=== PATIENT | male | born 1955 | race Caucasian/White ===

== ENCOUNTER 2023-06-05 06:54 | Observation (INO) ==
--- NOTE | 2023-05-11 12:25 | PAT Medication Instructions ---
Medication Instructions Date of Service May 11, 2023 Home Medications ibuprofen 200 mg tablet 800 mg PO UD PRN Pain ASK your surgeon for instructions ibuprofen 200 mg tablet 800 mg PO UD PRN Pain Other Notes Remember: NOTHING TO EAT OR DRINK AFTER MIDNIGHT If you have any questions please call us at [phone] or [phone] or [phone] or [phone]
--- NOTE | 2023-05-16 08:57 | Anesthesiology Consultation ---
Date of Service May 16, 2023 Assessment & Plan (1) Encounter for pre-operative examination: Chart Review Chart Review: Acceptable Risk for Surgery and Patient seen in Pre Admission Testing Pt currently scheduled as 23 hours observation. If surgeon decides to change patient to Same Day Joint, patient would be acceptable risk for TKA, pending patient is motivated, has good support and surgeon's office completes [facility] preop requirements. Per PAT appt on 05/16/23, no recent illness/disease exposures, illness related symptoms, or recent illness/disease positive tests. Will leave to surgeon's discretion if preop Covid testing needed Teaching & Discussion Pre-Anesthesia Teaching/Discussion Notes: Instructed NPO after midnight before surgery,except medications with 15 cc of water. Medication instructions provided according to the PAT guidelines. History Surgery Operation Date: 06/05/23 12:30 Proposed Procedures p Left Total Knee Arthroplasty - Terry Hernandez MD Height/Weight Height: 5 ft 11 in Weight: 118.1 kg Allergies Allergy/AdvReac Type Severity Reaction Status Date / Time No Known Allergies Allergy Verified 05/10/23 11:11 Medications Home Medications Medication Instructions Recorded Confirmed Last Taken ibuprofen 200 mg tablet 800 mg PO UD PRN Pain 08/18/21 05/10/23 08/18/21 10:00 Past Medical History Medical History Arthritis Exercise / Class Metabolic Activity II 4-5 Yardwork/Stairs/Walk up hill (one flight of stairs - no chest pain or SOB ) Past Family History Family History Unknown Unknown family medical history Past Surgical History Surgical History H/O hernia repair abdominal hernia History of cataract surgery rt/left Past Anesthesia History No Hx of Anesthesia Complications and No Family Hx of Anesthesia Complications History of PONV No Hx of PONV Social History Smoking Status: Never smoker Do You Dip or Chew Tobacco: No Hx Alcohol Use: Yes Alcohol type: beer alcohol intake frequency: a few times a month Hx Substance Use: No substance use type: does not use Review of Systems Patient denies chest pain, shortness of breath, dyspnea on exertion, reflux, cough, wheezing, palpitations. No hx of seizures, stroke, AR, apnea/snoring. No hx of blood clots or blood transfusions Physical Exam Vital Signs VITALS BP 171/86 (170/92 manually- patient checked BP at home later that day- was 132/86 (usually well controlled per patient)) P 55 TEMP 98.0 SP02 98% RESP 16 Constitutional no acute distress ENMT Mouth: no TMJ clicking Thyromental Distance: > or= 3.5 Finger Breadths (4.0) Mallampati Class: I Missing molars and side teeth (dental extraction 05/10/23- mild tightness with opening mouth- surgeon's office made aware) Permanent implant to top front teeth Neck + limited neck extension (significant ) Respiratory normal respiratory effort; no respiratory distress Auscultation: lungs clear to auscultation bilaterally; no wheezes Cardiovascular Rate/Rhythm: regular rate and regular rhythm Heart Sounds: no murmur Vessels: no carotid bruit Musculoskeletal Spine: + pain with cervical ROM Extremities: extremities normal to inspection Psychiatric Orientation: alert Lab Results Anesthesia Preop Results Results Anesthesia Widget: WBC 3.64 K/ul (4.8-10.8) L 05/16/23 Hgb 13.0 g/dl (14.0-18.0) L 05/16/23 Hct 39.5 % (42.0-52.0) L 05/16/23 Plt 127 K/uL (130-400) L 05/16/23 Na 137 mmol/L (136-145) 05/16/23 K 3.8 mmol/L (3.5-5.1) 05/16/23 Cl 106 mmol/L (98-107) 05/16/23 CO2 26 mmol/L (21-32) 05/16/23 BUN 18 mg/dl (6-23) 05/16/23 Creat 0.88 mg/dl (0.6-1.4) 05/16/23 Glucose Level 105 mg/dl (70-99(Fasting)) H 05/16/23 PT 10.9 Seconds (9.0-12.0) 05/16/23 PTT 26.1 Seconds (21.0-31.0) 05/16/23 INR 1.0 (0.9-1.1) 05/16/23 Blood Type A Positive 05/16/23 Antibody Screen NEGATIVE 05/16/23 Testing Electrocardiogram Date: 05/16/23 Findings: + SB @ (51bpm ) Normal EKG per cardio Chest X-Ray Date: 05/16/23 Findings: + NAD FINDINGS: No lines and tubes are seen. The aorta is tortuous. The remainder of the cardiomediastinal silhouette is unremarkable. The lungs are clear. No evidence of pleural effusion or pneumothorax Other Testing Lumbar spine CT 12/04/22= Nondisplaced fractures of the medial left 12th rib and transverse processes of L1 and L2. No intra-abdominal injury
--- NOTE | 2023-05-30 13:39 | History & Physical Report ---
Date of Service May 30, 2023 Assessment & Plan (1) Left knee DJD: 68-year-old male with advanced left knee DJD. Is failed conservative measures. He like to have his knee replaced. We will plan to take him the operative left total knee replacement. The risks Mente this procedure plan the patient and include but not limited to DVT PE infection neurological injury vascular bleeding palm pain limb range of motion sepsis fairly of symptoms incomplete relief of symptoms etc. The patient understands and desires to proceed. Informed consent is obtained. Plan DVT prophylaxis including thigh-high teds, SCDs, aspirin twice a day. He is plan to be discharged home using [facility] health program. History of Present Illness Chief Complaint: . Persistent left knee pain and discomfort Primary Care Provider: Quynh Milan DO . Patient is a 68-year-old gentleman presents for surgical treatment of his left knee. He has had a several year history of gradual progressive and increasing left knee pain discomfort. He has been through extensive conservative care including medicines as well as injection. The last shots have not really helped him at all. Describes global pain in his knee. The more he is up and out the more it hurts. Limps more as the day goes on. Having difficulty going up and down steps. Like to have his knee replaced. Allergies Allergy/AdvReac Type Severity Reaction Status Date / Time No Known Allergies Allergy Verified 05/10/23 11:11 Home Medications Medication Instructions Recorded Confirmed Type ibuprofen 200 mg tablet 800 mg PO UD PRN Pain 08/18/21 05/10/23 History Past Med/Surg History Medical History Arthritis Surgical History H/O hernia repair abdominal hernia History of cataract surgery rt/left Family History Unknown Unknown family medical history Social History Smoking Status: Never smoker Second Hand Exposure: No; Do You Dip or Chew Tobacco: No; Hx Alcohol Use: Yes Alcohol type: beer Hx Substance Use: No Preferred Language: Cymraes Meter Calibrator Required: No Beliefs That Will Affect Care: None marital status: Current Living Situation: Spouse current occupational status: employed current occupation: electric lift truck driver Feels Safe at Home: Yes Childhood Exposure to Second-Hand Smoke: No Physical Activity Frequency: Daily Assistive Devices: Cane Review of Systems All systems reviewed & are unremarkable except as noted in HPI & below. Physical Exam . Physical examination was a pleasant middle-aged male. Looks to be in reasonably good health. Fairly large gentleman. Examination of the left knee patient walks with a slight bit of a limp. Is got fairly neutral alignment to his knee. Small knee effusion. Tender medial and laterally. Range of motion is about 5-1 25. There is no instability. No pain with hip motion. Negative straight leg raise. He is neurologically intact Constitutional WD/WN, vitals as above Neck trachea midline, no thyromegaly Respiratory normal respiratory effort, lungs clear to auscultation Cardiovascular RRR, no murmur, no edema Gastrointestinal (Abdomen) normal bowel sounds, soft, nontender, no hepatosplenomegaly Results & Data Results & Data Laboratory Results . Diagnostic Findings . X-rays of the left knee were reviewed. Shows advanced left knee DJD. Is got a little bit tibiofemoral subluxation. He is got osteophytes and arthritic changes in all 3 compartments. PG Care Time/CCT Total # of Minutes Spent Total Time Spent with Patient: Total time spent is greater than 50% in coordination of care (as documented) at patient's floor/unit and/or counseling patient: Coding Level of Care Code None Diagnoses Left knee DJD M17.12
[~2023-06-05 06:54] MED LIST: ACETAMINOPHEN 500 MG TAB PO SCH; BUPIVACAINE 0.5 % 5 MG/1 ML PF 10ML VIAL ONE; BUPIVACAINE LIPOSOME/PF 266 MG, BUPIVACAINE/EPINEPHRINE 50 ML, SODIUM CHLORIDE 0.9% PF ... INFIL SCH; CeleBREX 200 MG CAP PO SCH; EPINEPHrine INJ 1 MG/ML AMP ONE; FAMOTIDINE 20 MG TAB PO SCH; LR 500ML BOLUS, THEN 15ML/HR IV SCH; LR 60ML/HR IV SCH; METOCLOPRAMIDE HCL 10 MG TABLET PO SCH; ROPIVACAINE 0.5% 5 MG/ML 30 ML VIAL ONE; TRANEXAMIC ACID 1,000 MG **IV Intra-op IV SCH; ceFAZolin 2000MG 2,000 MG/15 ML SYR IV SCH; dexAMETHasone**PF** 10 MG/ML VIAL IV SCH
--- NOTE | 2023-06-05 07:01 | History & Physical Bridge Note ---
Date of Service June 05, 2023 History & Physical Bridge Note I have examined the patient, reviewed the History & Physical and in the interval since the performance of the History & Physical I have noted the following changes of clinical significance: no changes noted
[2023-06-05] MEDS ORDERED: LIDOCAINE 2% 2 ML VIAL/AMP(20MG/ML) INFIL ONE (08:05)
[2023-06-05] MEDS ORDERED: PROPOFOL IV EMULSION 10 MG/ML 20 ML VIAL IV ONE ×2 (08:05→10:31)
[2023-06-05] MEDS ORDERED: fentaNYL citrate PF 100 MCG/2 ML VIAL ONE (08:18)
[2023-06-05] MEDS ORDERED: MIDAZOLAM HCL 1 MG/ML 2ML VIAL ONE (08:19)
[2023-06-05] MEDS ORDERED: SODIUM CHLORIDE 0.9% PF 50 ML VIAL ONE (09:27)
[2023-06-05] MEDS ORDERED: BUPIVACAINE LIPOSOME 1.3% 266 MG/20 ML VIAL ONE (09:27)
[2023-06-05] MEDS ORDERED: BUPIVACAINE/EPINEPHRINE 0.25% 1:200,000 30 ML VIAL ONE (09:27)
--- NOTE | 2023-06-05 11:39 | Operative Report ---
PG Post Operative Report Pre & Post Diagnosis Operation Date: 06/05/23 08:50 Pre-Op Diagnosis: Left Knee Advanced Degenerative Joint Disease Post-Op Diagnosis: Left Knee Advanced Degenerative Joint Disease I identified the patient and participated in the time-out.: Yes Procedure Operation Date: 06/05/23 08:50 Actual Procedures p Left Total Knee Arthroplasty(Left) - Terry Hernandez MD Surgeon Terry Hernandez MD Dredge Mate None Estimated Blood Loss 50 Findings Consistent with Post-Op Diagnosis Operative findings revealed a grade 4 DJD in all 3 compartments with severe in the medial side. He had large knee joint effusion. He had osteophytes in all 3 compartments. Specimens Left knee sent for pathology Anesthesia Type Spinal MAC Complications none Disposition Accompanied Patient To Recovery: No Indications Patient is 68-year-old gentleman said a long history of left knee pain discomfort describes gotten worse over time he has been through extensive conservative treatment which became less successful over time. Recurrent effusion and pain discomfort. He failed conservative measures. X-rays show progressive knee arthritis. He elected proceed with total knee arthroplasty. Description of Procedure Operative implants consist of: 1 Biomet Vanguard size 70 left posterior stabilized femoral component. 2. Biomet size 75 tibial tray. 3. 12 mm pro stabilized polyethylene insert. 4. 34 x 8 and half all poly patella. The patient was taken to the operating, identified, and placed on the operating table supine position architectures were properly padded. IV antibiotics arrived by anesthesia team. A spinal anesthetic and adductor canal block had provided holding area. A left factor was then placed. Left lower extremities and prepped draped in usual sterile fashion. The left leg was elevated exsanguinated with use of an Esmarch in terms playset 300 mmHg. An anterior posterior left knee was then performed to longitudinal incision centered over the patella. Sharp dissection scalp through subcutaneous tissue down the extensor mechanism. A medial parapatellar throb incision was made. Some subperiosteal dissection was carried out medially to the fat pad was resected from Neath patella tendon. The lateral patellofemoral ligament was released. Patella subluxated laterally knee was flexed with the osteophytes taken on distal femur. ACL PCL then released from distal femur the tibia subluxated anteriorly. The external tibial alignment jig was then placed in the anterior face of the tibia and adjusted 14 mm medially. Proximal tibial cut was made remove a millimeter or 2 of bone from the medial side. Some osteophytes taken off medially. Tibia sized to a size 75. Attention drawn the femur. The distal femur was then with a sharp drill. Intramedullary canal was suction. Left 6 degree valgus cutting guide was placed. This femoral cutting block was pinned in place. This femoral cut was made to take an additional 3 mm of bone off distal femur. Femur was then sized to a size 70. The AP cutting block was pinned parallel to the epicondylar axis which was 5 degrees of external rotation. The anterior cut, anterior chamfer, posterior cut, posterior chamfer cuts were made. The box cutting guide was then placed in just slight lateral box cut was made. The knee was flexed through the remnants of the medial and l ateral menisci were excised. The osteophytes taken off the posterior aspect the femur. A trial femoral component was placed for the tibial tray was pinned in maximum external rotation and the drill and stem punch used to create defect in proximal tibia for the tibial tray. The knee was then trialed a 12 mm insert fit most appropriately. Attention drawn the patella. The patella is cleaned of all soft tissues. Patella thickness measured 24 mm in thickness was cut down to 15. It was sized to a size 34 patella. The lug holes were drilled for the 34 patella. The lateral osteophytes removed. Patella button was placed. Knee was taken through range of motion and the patella tracked nicely with no thumbs test. Attention drawn to placing the permanent components. All trial components were removed. Bone plug was placed into this femur limit blood loss. Double batch Palacos G cement was mixed. Biomet Vanguard size 70 left Po stabilized femoral component, size 75 tibial tray, a 12 mm pro stabilized polyethylene insert, and a 34 x 8 and half all poly patella was then cemented in place. The knee was brought into full extension till cement hardened. Final cement check was then performed. The pericapsular tissues were injected with total of 100 cc of combination of 20 cc Exparel, 30 cc normal saline, 50 cc of quarter percent Marcaine with epinephrine. Patient did receive 1 g tranexamic acid. The tourniquet was then let down for final tourniquet time of 60 minutes. Hemostasis reduced electrocautery. The extensor mechanism closed with combination 1 PDS suture #1 Vicryl suture in a [id number] fashion. Extensor mechanism checked found to be intact with subcutaneous tissue then closed with 2 Dexon suture in a buried interrupted fashion skin was closed skin ernesto. Leg was then cleaned and dried and sterile dressing was Xeroform, 4 fours, sterile cast padding, Severo bandage were applied. Patient then transferred to the recovery in stable condition. Patient tolerated procedure well and there were no complications. I attest to the content of the Intraoperative Record and any orders documented therein. Any exceptions are noted below.
--- NOTE | 2023-06-05 11:49 | Anesthesiology Progress Note ---
Date of Service June 05, 2023 Anesthesia Post Procedure Vital Signs Vital Signs: Temp Pulse Resp BP Pulse Ox O2 Del Method 06/05/23 07:28 36.5 C 67 20 164/94 H 100 Room Air Transfer of Care Handoff Completed per policy Notes Mental Status: alert / awake / arousable Patient Amnestic to Procedure: Yes Nausea / Vomiting: adequately controlled Pain: adequately controlled Airway Patency, RR, SpO2: stable & adequate BP & HR: stable & adequate Hydration State: stable & adequate Neuraxial Anesthesia: was administered and sensory block is resolving Anesthetic Complications: no major complications apparent
[2023-06-05] MEDS ORDERED: ATROPINE SULFATE 0.1 MG/ML 10ML SYR IV PRN (11:50)
[2023-06-05] MEDS ORDERED: ePHEDrine sulfate 50 MG/ML AMP IV PRN (11:50)
--- NOTE | 2023-06-05 12:11 | XRay Report ---
XR knee LT 1 or 2V routine CLINICAL HISTORY: Postoperative evaluation COMPARISON: Knee radiographs September 11, 2022. FINDINGS: Alignment of the total left knee arthroplasty is anatomic. There is no periprosthetic frac ture. No unexpected radiopaque foreign bodies are present. There are skin ernesto. IMPRESSION: Expected findings following total left knee arthroplasty. ACT 112: Negative or not required by law. Electronically signed by: Pj Centeno M.D. 06/05/2023 12:09 PM
[2023-06-05] MEDS ORDERED: ALUMINUM/MAGNESIUM SUSP 30 ML UDC PO PRN (12:39)
[2023-06-05] MEDS ORDERED: SODIUM CHLORIDE 0.9% 1,000 ML IV SCH (12:39)
[2023-06-05] MEDS ORDERED: oxyCODONE HCL IR 5 MG TAB (IMMEDIATE RELEASE) PO PRN (12:39)
[2023-06-05] MEDS ORDERED: METOCLOPRAMIDE HCL INJ 5 MG/ML 2 ML VIAL IV PRN (12:39)
[2023-06-05] MEDS ORDERED: TAMSULOSIN HCL 0.4 MG CAP PO PRN (12:39)
[2023-06-05] MEDS ORDERED: MAGNESIUM HYDROXIDE SUSP 30 ML UDC PO PRN (12:39)
[2023-06-05] MEDS ORDERED: HYDROmorphone INJ 0.5 MG/0.5 ML SYR IV PRN (12:39)
[2023-06-05] MEDS ORDERED: ONDANSETRON INJ 2 MG/ML 2 ML VIAL IV PRN (12:39)
[2023-06-05] MEDS ORDERED: bisacodyL 10 MG SUPP PR PRN (12:39)
[2023-06-05] MEDS ORDERED: NALOXONE HCL 0.4 MG/1 ML VIAL/CARP IV PRN (12:39)
--- NOTE | 2023-06-05 12:47 | Anesthesiology Progress Note ---
Date of Service June 05, 2023 Anesthesia Post Procedure Vital Signs Vital Signs: Temp Pulse Pulse Resp BP Pulse Ox O2 Del Method 06/05/23 12:40 36.4 C L 90 16 114/71 99 Room Air 06/05/23 12:20 89 21 131/74 96 Room Air 06/05/23 12:10 36.5 C 83 16 106/71 95 Room Air 06/05/23 12:00 89 18 111/75 95 Room Air 06/05/23 11:50 88 23 108/70 96 Room Air 06/05/23 11:40 99 H 20 100/66 99 Oxymask 06/05/23 11:32 36.5 C 95 H 20 89/55 L 98 Oxymask 06/05/23 07:28 36.5 C 67 20 164/94 H 100 Room Air O2 Flow Rate 06/05/23 12:40 06/05/23 12:20 06/05/23 12:10 06/05/23 12:00 06/05/23 11:50 06/05/23 11:40 4 06/05/23 11:32 6 06/05/23 07:28 Transfer of Care Handoff Completed per policy Notes Mental Status: alert / awake / arousable Patient Amnestic to Procedure: Yes Nausea / Vomiting: adequately controlled Pain: adequately controlled Airway Patency, RR, SpO2: stable & adequate BP & HR: stable & adequate Hydration State: stable & adequate Neuraxial Anesthesia: was administered and sensory block is resolving Anesthetic Complications: no major complications apparent
[2023-06-05] MEDS: ACETAMINOPHEN 500 MG TAB PO SCH ×2 (13:43→19:39)
[2023-06-05] MEDS: KETOROLAC TROMETHAMINE 15 MG/ML VIAL IV SCH ×2 (15:43→21:07)
[2023-06-05] MEDS: ceFAZolin 2000MG 2,000 MG/15 ML SYR IV SCH (17:39)
[2023-06-05] MEDS ORDERED: TRANEXAMIC ACID / 0.7% NACL 1,000 MG/100 ML BAG IV SCH (17:45)
[2023-06-05] MEDS: ASPIRIN 81 MG ECTAB PO SCH (19:40)
[2023-06-05] MEDS: DOCUSATE SODIUM 100 MG CAP PO SCH (19:40)
[2023-06-05] MEDS: SENNA 8.6 MG TAB PO SCH (19:41)
[2023-06-05] MEDS ORDERED: SENNA 8.6 MG TAB PO SCH (21:00)
[2023-06-06] MEDS: ceFAZolin 2000MG 2,000 MG/15 ML SYR IV SCH (00:55)
[2023-06-06] MEDS: KETOROLAC TROMETHAMINE 15 MG/ML VIAL IV SCH ×2 (04:15→10:15)
[2023-06-06 06:27] LABS: BUN Creatinine Ratio 23.5 (10-20); Calcium 8.6 mg/dl (8.6-10.3); Creatinine Clr Calc Pharmacy 110.4 ml/min; Est GFR (African American) 104.4 ml/min; Hematocrit (blood only) 29.8 % (42.0-52.0); Hemoglobin 9.6 g/dl (14.0-18.0); Mean Corpuscular Hemoglobin 26.8 pg (25.0-34.0); Mean Corpuscular Hgb Conc 32.2 g/dL (32.0-36.0); Mean Corpuscular Volume 83.2 fL (80.0-100.0); Mean Platelet Volume 9.6 fL (9.4-12.4); Platelet Count 150 K/uL (130-400); Potassium 4.2 mmol/L (3.5-5.1); RDW Coefficient of Variation 15.3 % (11.5-14.5); RDW Standard Deviation 46.1 fL (36.4-46.3); Red Blood Count 3.58 M/uL (4.70-6.10); White Blood Count 13.17 K/ul (4.8-10.8)
[2023-06-06] MEDS ORDERED: dexAMETHasone 10 MG in SYRINGE 0 ML IV SCH (08:00)
[2023-06-06] MEDS: ACETAMINOPHEN 500 MG TAB PO SCH (08:05)
[2023-06-06] MEDS: SENNA 8.6 MG TAB PO SCH (08:05)
[2023-06-06] MEDS: ASPIRIN 81 MG ECTAB PO SCH (08:06)
[2023-06-06] MEDS: DOCUSATE SODIUM 100 MG CAP PO SCH (08:06)
[2023-06-06] MEDS ORDERED: MULTIVITAMIN TAB PO SCH (09:00)
--- NOTE | 2023-06-06 11:40 | Surgery Progress Note ---
Date of Service June 06, 2023 Assessment & Plan (1) Status post left knee replacement: Plan: 68-year-old gentleman postop day 1 from left knee replacement doing well. His knee is functioning quite well. Pain is controlled. He is neurologically intact. Plan: 1. DVT prophylaxis including thigh-high teds, SCDs, aspirin twice daily. 2. PT OT. Weight-bear as tolerated left total knee protocol. 3. Pain control doing okay with current pain regimen. 4. Disposition plan to discharge home with some home health after therapy today Admission and Anticipated Discharge Date Admission Date: June 05, 2023 Subjective 68-year-old gentleman postop day 1 from a total knee replacement. He is doing pretty well. He has been walking up and around his room with a cane pretty much independently. Pain is very well controlled. No chest pain or shortness of breath. Not feeling dizzy or lightheaded. Physical Exam Physical Exam: Physical examination was a pleasant gentleman has been walking around his room with use of a cane. Examination of the leg reveals the dressing be clean dry and intact. He can do a straight leg raise. Can dorsiflex and plantarflex his foot appropriately. Dressing is clean dry and intact. Respiratory: normal respiratory effort, lungs clear to auscultation Cardiovascular: RRR, no murmur, no edema Gastrointestinal (Abdomen): normal bowel sounds, soft, nontender, no hepatosplenomegaly Results & Data Vital Signs (Past 12 Hours) Vital Signs Temp Pulse Resp BP Pulse Ox O2 Del Method 06/06/23 10:59 36.5 C 64 16 131/81 100 06/06/23 07:14 36.5 C 64 16 131/81 100 Room Air 06/06/23 02:28 36.7 C 76 16 122/76 99 Room Air Laboratory Results Hemoglobin is 9.6. Mackert 29.8. Electrolytes are stable. PG Care Time/CCT Total # of Minutes Spent Total Time Spent with Patient: Total time spent is greater than 50% in coordination of care (as documented) at patient's floor/unit and/or counseling patient: Coding Level of Care Code 60655 Post Operative Follow-Up Diagnoses Status post left knee replacement Z96.652
== END 2023-06-06 12:41 | disposition home health service (06) ==
LOC: ASU 06:54 → 3E 06:54